=== PATIENT | male | born 2000 | race Caucasian/White ===

== ENCOUNTER 2025-05-06 13:50 | Emergency (ER) | payer OTHER ==
[~2025-05-06] VITALS: Ht 185.4 cm; Wt 84.8 kg
[2025-05-06] MEDS ORDERED: Ketorolac Tromethamine 15mg Vial IM ONE (13:55)
== END 2025-05-06 15:50 | disposition home or self-care (01) ==
LOC: ER 13:50
DX: S61.012A Laceration without foreign body of left thumb without damage to nail, initial encounter (principal); W27.0XXA Contact with workbench tool, initial encounter; Z23 Encounter for immunization; Z59.6 Low income; Z59.89 Other problems related to housing and economic circumstances
CPT/HCPCS: 12001; 73140; 90471; 90715; 96374-59; 99282-25; J1885